=== PATIENT | male | born 1985 | race Caucasian/White ===

== ENCOUNTER → 2017-06-22 | Outpatient (CLI) | payer BC, OTHER ==
[~2017-06-22] MED LIST: OXYACE5T PO; RXERYTOPTH OP
== END ==
LOC: LAB 12:34
DX: E03.9 Hypothyroidism, unspecified (principal)
CPT/HCPCS: 84443

== ENCOUNTER → 2017-12-21 | Outpatient (CLI) | payer BC, OTHER | LOC: LAB 10:40 → LAB SHORT 10:40 | DX: E03.9 Hypothyroidism, unspecified (principal) | CPT/HCPCS: 84443 ==

== ENCOUNTER 2024-10-08 22:25 | Emergency (ER) | payer OTHER ==
[~2024-10-08] VITALS: Ht 175.3 cm; Wt 95.7 kg
[2024-10-08 22:46] LABS: BASOPHILS ABSOLUTE AUTO 0.03 K/mm3 (0.00-0.23); BASOPHILS PERCENT AUTO 0 % (0-2); EOSINOPHILS ABSOLUTE AUTO 0.07 K/mm3 (0.00-0.68); EOSINOPHILS PERCENT AUTO 1 % (0-6); Hematocrit 43.5 % (37.0-53.0); Hemoglobin 15.1 g/dL (13.5-17.5); IMMATURE GRAN ABSOLUTE AUTO 0.02 K/mm3 (0.00-0.10); IMMATURE GRAN PERCENT AUTO 0 % (0-1); LYMPHOCYTES ABSOLUTE AUTO 1.18 K/mm3 (0.84-5.20); LYMPHOCYTES PERCENT AUTO 12 % (21-46); MONOCYTES PERCENT AUTO 8 % (4-13); Mean Corpuscular HGB 28.5 pg (26.0-34.0); Mean Corpuscular HGB Conc 34.7 g/dL (31.5-36.5); Mean Corpuscular Volume 82 fL (80-100); Mean Platelet Volume 9.3 fL (9.1-12.4); NEUTROPHILS ABSOLUTE AUTO 7.66 K/mm3 (1.96-9.15); NEUTROPHILS PERCENT AUTO 79 % (41-73); Platelet Count 294 K/mm3 (150-400); RDW Coefficient Variation 12.1 % (11.7-14.2); RDW Standard Deviation 36.3 fL (35.1-46.3); Red Blood Cell Count 5.29 M/mm3 (4.30-5.90); White Blood Cell Count 9.76 K/mm3 (4.00-11.30)
[2024-10-08 23:05] LABS: Albumin, Blood 4.1 g/dL (3.4-5.0); Albumin/Globulin Ratio 1.1 (0.8-1.8); Bilirubin, Total 1.2 mg/dL (0.1-1.0); Bun/Creatinine Ratio 17.4 (12.0-20.0); Calcium, Blood 9.1 mg/dL (8.5-10.1); Creatinine, Blood 1.09 mg/dL (0.60-1.20); Globulin, Blood 3.7 g/dL (2.2-4.0); Total Protein, Blood 7.8 g/dL (6.4-8.2)
[2024-10-08] MEDS ORDERED: Ketorolac Tromethamine 30mg Vial IV ONE (23:10)
[2024-10-08] MEDS ORDERED: Lidocaine 4% 1 Patch TOP ONE (23:25)
[2024-10-08 23:33] LABS: C-Reactive Protein, High Sens. 21.4 mg/L (0.000-3.000)
[2024-10-09] MEDS ORDERED: IBUP600 PO (00:03)
[2024-10-09] MEDS ORDERED: COLCHICINE0.6 MG PO (00:03)
[2024-10-09 00:15] VITALS: BP 143/89
== END 2024-10-09 00:22 | disposition home or self-care (01) ==
LOC: ER 22:25
PROVIDERS: Emergency Medicine
DX: I31.9 Disease of pericardium, unspecified (principal)
CPT/HCPCS: 71045; 80053; 83880; 84484; 85025; 85651; 86141; 93005; 93010; 96374; 99284-25; J1885